=== PATIENT | male | born 1965 | race Caucasian/White ===

== ENCOUNTER 2020-10-21 15:44 | Inpatient (IN) | payer OTHER, SELFPAY ==
--- NOTE | ~2020-10-21 | XR_ITS ---
XR elbow RT min 3V DATE: 10/21/2020 17:55 INDICATION: Right elbow edema, erythema TECHNIQUE: 4 views COMPARISON: None FINDINGS: There is prominent dorsal soft tissue swelling of the elbow. There is a prominent olecranon process spur with a lucency near the base, possibly due to fracture of uncertain age. There is spurring of the coronoid process of the ulna. There is mild radial head spurring. No fracture or dislocation or joint effusion, periosteal reaction or bone destruction. IMPRESSION: Prominent dorsal soft tissue swelling Dorsal olecranon spurring, with possible fracture of undetermined age Osteoarthritis Reviewed, dictated and finalized at location A. [facility]
[2020-10-21 16:08] VITALS: BP 145/100; PULSE 118; RESP 16; TEMP 37.1; O2SAT 96
--- NOTE | 2020-10-21 17:40 | ED.EXTPRO ---
HPI - Extremity Problem General Chief complaint: Extremity Problem,Nontraumatic <Zeenat Thompson PA-C - Last Filed: 10/21/20 20:37> Stated complaint: right forearm <HUMBERTO Gifford Last Filed: 10/21/20 20:37> Time Seen by Provider: 10/21/20 17:30 <HUMBERTO Gifford Last Filed: 10/21/20 20:37> Source: patient <HUMBERTO Gifford Last Filed: 10/21/20 20:37> Mode of arrival: ambulatory <HUMBERTO Gifford Last Filed: 10/21/20 20:37> Limitations: no limitations <HUMBERTO Gifford Last Filed: 10/21/20 20:37> History of Present Illness HPI Narrative: This is a 55 year old male that presents to the ER for right elbow pain and swelling intermittent for the last couple of months. Reports he bumped the elbow and since has intermittently had swelling in the area. Reports over the last couple of days the swelling and redness increased again which prompted him to be seen. Denies fever or decreased ROM. <HUMBERTO Gifford Last Filed: 10/21/20 20:37> Related Data Home medications: Home Medications Medication Instructions Recorded Confirmed No Home Medications 10/21/20 10/21/20 <HUMBERTO Gifford Last Filed: 10/21/20 20:37> Allergies/Adverse reactions: Allergies Allergy/AdvReac Type Severity Reaction Status Date / Time No Known Allergies Allergy Verified 10/21/20 21:39 <HUMBERTO Gifford Last Filed: 10/21/20 20:37> Review of Systems Review of Systems: Narrative: CONSTITUTIONAL: Denies fever SKIN: Reports redness MUSCULOSKELETAL: Reports joint pain, and myalgia. NEUROLOGIC: Denies numbness <HUMBERTO Gifford Last Filed: 10/21/20 20:37> All systems reviewed & are unremarkable except as noted in HPI and below <HUMBERTO Gifford Last Filed: 10/21/20 20:37> [facility] Family History Family History: Family History (Updated 10/21/20 @ 21:44 by Rere Quevedo RN) Father Family history of cardiovascular disease Diabetes mellitus Cerebrovascular accident Mother Diabetes mellitus Sibling Family history of cardiovascular disease Afib <Zeenat Thompson PA-C - Last Filed: 10/21/20 20:37> Social History Social History: Social History Smoking status: Never smoker Second hand tobacco smoke exposure: No Alcohol intake: current Drinks per week: 4 Substance use: never Substance use type: does not use Gender identity (if verbalized by the patient): Male Spiritual care concerns: No <Zeenat Thompson PA-C - Last Filed: 10/21/20 20:37> Exam Narrative: Exam Narrative: GENERAL: Well-appearing, well-nourished, and in no acute distress. HEAD: Normocephalic, atraumatic. EYES: EOMI. CHEST: Clear to auscultation. No respiratory distress. No wheezes rales or rhonchi HEART: Regular rate and rhythm. No murmur heard. Normal peripheral pulses. EXTREMITIES: Normal range of motion. Moderate edema and erythema surrounding the posterior right elbow, olecranon bursa is fluctuant and tender. Erythema extends into the forearm and up into the axilla. Normal radial pulses. Normal sensation SKIN: Warm, dry, no rash. NEURO: No focal deficits. Alert and oriented x3. PSYCH: Normal mood and affect <Zeenat Thompson PA-C - Last Filed: 10/21/20 20:37> Course Consultations Consultation #1: Spoke with Dr. Chung about patient and workup, likely will not treat this as a fracture, patient has no certain injury he can think of. <Zeenat Thompson PA-C - Last Filed: 10/21/20 20:37> Date: 10/21/20 <HUMBERTO Gifford Last Filed: 10/21/20 20:37> Time: 20:35 <HUMBERTO Gifford Last Filed: 10/21/20 20:37> Consultation #2: Spoke with hospitalist about patient and work-up who accepts admission <Zeenat Thompson PA-C - Last Filed: 10/21/20 20:37> Date: 10/21/20 <Zeenat Thompson PA-C - Last Filed: 10/21/20 20:37> Time:
[2020-10-21 18:13] LABS: Basophils Absolute Auto 0.1 K/mm3 (0.0-0.1); Basophils Percent Auto 0.5 % (0.2-1.2); Eosinophils Absolute Auto 0.1 K/mm3 (0-0.3); Eosinophils Percent Auto 1.1 % (0-4.4); Hematocrit 46.2 % (42.0-52.0); Immature Granulocyte Absolute 0.05 K/mm3 (0.00-0.031); Immature Granulocyte Percent A 0.5 % (0-0.5); Lymphocytes Absolute Auto 1.88 K/mm3 (0.9-3.2); Lymphocytes Percent Auto 19.4 % (18.3-44.2); Mean Corpuscular HGB Conc 34.6 g/dl (32-36); Mean Corpuscular Hemoglobin 30.6 pg (26-34); Mean Corpuscular Volume 88.3 fl (80-100); Mean Platelet Volume 10.1 fl (7.4-10.4); Monocytes Absolute Auto 0.9 K/mm3 (0.1-0.6); Monocytes Percent Auto 9.2 % (2.6-8.5); Neutrophils Absolute Auto 6.7 K/mm3 (1.3-6.7); Neutrophils Percent Auto 69.3 % (45.5-73.1); Platelet Count Result 226 k/mm3 (150-375); Red Blood Count 5.23 M/mm3 (4.6-6.20); Red Cell Distribution Width 11.5 % (11.5-14.5); White Blood Count 9.7 K/mm3 (4.5-10.0)
[2020-10-21 18:27] LABS: Anion Gap 5 mmol/L (8-16); Blood Urea Nitrogen 17 mg/dL (9-20); CRP 5.8 mg/dL (<1.0); Calcium 9.7 mg/dL (8.4-10.2); Carbon Dioxide 28 mmol/L (22-30); Chloride 104 mmol/L (98-107); Estimated CRCL calculation 81 ml/min; Estimated Glomerular Filt Rate > 60; Glucose 175 mg/dL (75-110); Potassium 4.3 mmol/L (3.4-5.0); Sodium 137 mmol/L (137-145)
[2020-10-21 18:51] LABS: Erythrocyte Sedimentation Rate 14 mm/hr (0-20)
[2020-10-21 18:53] VITALS: BP 139/81; PULSE 87; RESP 18; O2SAT 97
--- NOTE | 2020-10-21 19:42 | PM.IMHP ---
H&P: HPI History of Present Illness Date/Time: 10/21/20 19:42 Chief Complaint: left elbow swelling and redness++ Narrative: This is a pleasant 55 year old male who is previously known to be healthy who presented to the hospital today with a complaint of right elbow redness, tenderness, and swelling which has just worsened over the past three days. He is known to have had right elbow swelling and discomfort that has been intermittent over the past few months which he initially noticed after raking some leaves several months ago. He denies any trauma of his right elbow. Over the past three days he started to notice that the redness was worsening and spreading down his right forearm to his wrist. He denies any fever, nausea, chills, vomiting, numbness, tingling, or decreased range of motion of his right upper extremity. He has no previous history of serious infections and denies any history of MRSA. In the ER tonight he had his right elbow aspirated by ER provider. The patient has no history of diabetes mellitus. No other complaints. Ortho has been consulted by ER provider. Review of Systems Review of Systems: All systems reviewed & are unremarkable except as noted in HPI and below PMFSH Family History Family History Father Family history of cardiovascular disease Diabetes mellitus Cerebrovascular accident Mother Diabetes mellitus Sibling Family history of cardiovascular disease Afib Social History Social History Smoking status: Never smoker Second hand tobacco smoke exposure: No Alcohol intake: current Drinks per week: 4 Substance use: never Substance use type: does not use Gender identity (if verbalized by the patient): Male Spiritual care concerns: No Comments The patient has no past significant medical or surgical history. Meds Home Medications and Allergies Home Medications Medication Instructions Recorded Confirmed Type No Home Medications 10/21/20 10/21/20 History Allergies Allergy/AdvReac Type Severity Reaction Status Date / Time No Known Allergies Allergy Verified 10/21/20 21:39 Vital Signs Vital Signs - 24 hr 10/21/20 16:08 10/21/20 18:53 Temperature 37.1 C Pulse Rate 118 H 87 Respiratory Rate 16 18 Blood Pressure 145/100 H 139/81 Pulse Oximetry 96 97 Exam Const: General: cooperative, no acute distress, alert and awake Nutritional Appearance: overweight Orientation/consciousness: patient oriented x3 HENMT: Head: normal to inspection General nose exam: Normal external nose present Face and sinus: normal facial exam Mouth: Yes Normal oral and palatal mucosa present and Yes oropharynx normal Eyes: Pupils: Equal, round and reactive pupils present EOM: EOMs intact bilaterally Neck: Neck: supple and no JVD Thyroid: thyroid normal Lymphatic: lymphadenopathy not noted Resp: Effort & Inspection: normal respiratory effort Auscultation: clear to auscultation bilaterally Cardio: Rate: regular rate Rhythm: regular rhythm Heart sounds: no murmurs GI: Inspection: normal to inspection Auscultation: normal bowel sounds Skin: General skin exam: normal color and erythema (right elbow + forearm+ ) Neuro: General: patient oriented x3 Cranial nerves: Yes CN's II-XII intact bilaterally and Yes Equal, round and reactive pupils present Speech: normal speech Motor exam (neuro): 5/5 motor strength present throughout Sensory Exam: normal sensation Extrem: Right upper extremity: elbow/forearm (Edema and Erythema of right elbow extending on vental side to wrist+ ) Psych: Mental Status: mental status grossly normal Affect: normal affect H&P: Results Labs Labs: Short CBC 10/21/20 Range/Units 18:08 WBC 9.7 (4.5-10.0) K/mm3 Hgb 16.0 (14.0-18.0) g/dL Hct 46.2 (42.0-52.0) % Plt Count 226 (150-375) k/mm3 BMP 10/21/20 1
[2020-10-21 20:04] VITALS: BP 129/86; PULSE 79; RESP 20; O2SAT 96
[2020-10-21 21:00] VITALS: BP 124/87; PULSE 89; RESP 20; O2SAT 99
[2020-10-21 21:12] LABS: Color Synovial Fluid Yellow (Colorless); Crystals Synovial Fluid None Seen (None Seen); Source Synovial Fluid Synovial fluid
[2020-10-21 21:13] LABS: Appearance Synovial Fluid Hazy (Clear)
[2020-10-21 21:14] LABS: Lymphocytes Synovial Fluid 1 %; Monocytes Synovial Fluid 8 %; Neutrophils Synovial Fluid 91 % (0-25)
[2020-10-21 21:21] VITALS: BP 117/80; PULSE 96; RESP 18; O2SAT 96
--- NOTE | 2020-10-21 21:30 | ADMGEN ---
This patient, Luther Antunez, was admitted to Medical Room 342-01. Patient/family oriented to hospital policies and general routines including ID bracelet, bed and alarms, visiting hours, pain management, procedures, bathroom and other care routines, personal items, smoking policy, room service/diet, and visiting hours. Information on how to activate the Rapid Response Team has been discussed. Patient/Family are encouraged to report perceived risks to care and to ask questions if they do not understand what they are told or what they should do.
[2020-10-21 21:57] VITALS: BP 144/93; PULSE 93; RESP 18; TEMP 36.9; O2SAT 97
[2020-10-21 22:00] VITALS: BMI 30.1
[2020-10-22 05:19] VITALS: BP 134/75; PULSE 74; RESP 18; TEMP 36.2; O2SAT 98
[2020-10-22 06:05] LABS: Basophils Percent Auto 0.5 % (0.2-1.2); Eosinophils Absolute Auto 0.1 K/mm3 (0-0.3); Eosinophils Percent Auto 1.6 % (0-4.4); Hematocrit 43.8 % (42.0-52.0); Hemoglobin 14.7 g/dL (14.0-18.0); Immature Granulocyte Absolute 0.03 K/mm3 (0.00-0.031); Immature Granulocyte Percent A 0.3 % (0-0.5); Lymphocytes Absolute Auto 2.55 K/mm3 (0.9-3.2); Lymphocytes Percent Auto 28.8 % (18.3-44.2); Mean Corpuscular HGB Conc 33.6 g/dl (32-36); Mean Corpuscular Hemoglobin 29.8 pg (26-34); Mean Corpuscular Volume 88.7 fl (80-100); Mean Platelet Volume 10.9 fl (7.4-10.4); Neutrophils Absolute Auto 5.1 K/mm3 (1.3-6.7); Neutrophils Percent Auto 57.8 % (45.5-73.1); Platelet Count Result 222 k/mm3 (150-375); Red Blood Count 4.94 M/mm3 (4.6-6.20); Red Cell Distribution Width 11.4 % (11.5-14.5); White Blood Count 8.9 K/mm3 (4.5-10.0)
[2020-10-22 06:23] LABS: Anion Gap 2 mmol/L (8-16); Blood Urea Nitrogen 18 mg/dL (9-20); Calcium 8.8 mg/dL (8.4-10.2); Carbon Dioxide 29 mmol/L (22-30); Chloride 103 mmol/L (98-107); Estimated CRCL calculation 83 ml/min; Estimated Glomerular Filt Rate > 60; Glucose 208 mg/dL (75-110); Potassium 3.9 mmol/L (3.4-5.0); Sodium 134 mmol/L (137-145)
[2020-10-22 08:00] VITALS: PULSE 85; RESP 16; O2SAT 94
[2020-10-22 09:45] LABS: Glucose Point of Care 245 (65-105)
--- NOTE | 2020-10-22 10:13 | PM.IMPN ---
Progress Note: A&P Assessment and Plan (1) Right forearm cellulitis: Code(s): L03.113 - Cellulitis of right upper limb Status: Acute Assessment and Plan: This appears to have significantly improved since admission based on area of concern that is outlined with marker. Area over elbow appears warm/erythematous. Aspiration yesterday yielded 20 ccs of yellow/hazy fluid with 91% neutrophils; no crystals seen. No gram stain performed; cultures pending on fluid. BCx also pending. Right elbow xr shows Prominent dorsal soft tissue swelling and dorsal olecranon spurring, with possible fracture of undetermined age . Patient is afebrile with stable VS, no leukocytosis; not septic appearing. A1c 8.0 today suggesting possible DM, or elevated 2/2 infection? Patient has no history of DM. Dr. Chung was consulted from the ED and appreciate input; appears no further intervention at this time. Will continue treatment of possible septic bursitis with cellulitis Will add imipenem in addition to vancomycin per antibiotic stewardship given possible DM diagnosis He does not appear septic and seems as though erythema has significantly improved overnight; will await culture results and pending on these results, will consider discharge on PO antibiotic regimen if continued improvement monitor overnight Glucose control as noted below (2) Olecranon bursitis, right elbow: Code(s): M70.21 - Olecranon bursitis, right elbow Status: Acute Assessment and Plan: Please see above a/p (3) Elevated hemoglobin A1c: Code(s): R73.09 - Other abnormal glucose Status: Acute Assessment and Plan: A1c 8.0 suggesting undiagnosed DM; infection likely adding to elevated sugars Glucose control with accuchecks ACHS, hypoglycemia protocol, correctional insulin, diabetic diet during stay Will have patient follow up with PCP after discharge Will consider discharging on metformin in interim, but he will be encouraged to improve diet/exercise Monitor glucose levels Subjective Date/time seen: 10/22/20 10:13 Interval history: Patient is a 55 yo previously healthy male who is seen in follow up for right olecranon bursitis and associated cellulitis in right upper arm and forearm; he also has elevated A1c. Patient states he thinks the redness/swelling has improved overnight. Still edematous in distal right upper arm, elbow and forearm. He denies any pain over elbow, but notes there was some pain prior to admission. Otherwise no other complaints. Denies f/c/s, headaches, dizziness, lightheadedness, cp/palpitations, sob/cough, n/v/d/c, abd pain, changes in BMs, dysuria, calf pain/swelling. Review of Systems Review of Systems: All systems reviewed & are unremarkable except as noted in HPI and below Exam Narrative: Exam Narrative: General: Patient resting in semi-felder's position in bed in no acute distress. HEENT: Normocephalic, EOMI, oral mucosa moist. Cardiovascular: Rate and rhythm are regular. No notable murmur, rub, or gallop. Respiratory: Lungs clear to auscultation all maya. Non-labored breathing. Abdomen: Soft, non-tender, non-distended, bowel sounds present. Extremities: Peripheral pulses intact. Right elbow shows roughly half dollar-sized erythema and edema with roughly pea-sized healing scab overlying the area; no drainage appreciated; warm to touch. Minimal edema extending to distal right upper arm and significant edema extending to ventral side of forearm. Outside the area of concern on elbow, there does not appear to be much erythema and temp appears to be same as surrounding tissues; no signs of lymphangitis. NVI distal to area of concern. Minimal limited active ROM with flexion at level of elbow; Full extension at level of elbow. NTTP b/l calves Neuro: No focal neurological deficits. Speech is clear. O
[2020-10-22] MEDS: INSULIN ASPART (*BKC) 100 UNITS/ML SUB-Q ×2 (10:27→17:28)
[2020-10-22 11:50] LABS: Glucose Point of Care 188 (65-105)
[2020-10-22 14:00] VITALS: BP 145/86; PULSE 85; RESP 16; TEMP 36.9; O2SAT 94
--- NOTE | 2020-10-22 14:16 | PM.CNOR ---
Assessment and Plan Assessment and plan (1) Olecranon bursitis, right elbow: Code(s): M70.21 - Olecranon bursitis, right elbow Status: Acute (2) Right forearm cellulitis: Code(s): L03.113 - Cellulitis of right upper limb Status: Acute (3) Abnormal glucose: Code(s): R73.09 - Other abnormal glucose Status: Acute Assessment and Plan: Acute olecranon bursitis with cellulitis in the upper extremity. New diagnosis of diabetes mellitus. Some improvement with the IV antibiotics administered yesterday. I suspect he will continue to improve. Cultures are pending. I agree with plan to find an appropriate oral antibiotic and then discharge home. I cautioned the patient about overuse of the elbow which can contribute to swelling and further infection. He understands the risk of progressive swelling and sepsis. He will be following up with his primary care physician for the diabetes and he may follow with me for the elbow as necessary in 2-3 weeks. There are mild degenerative changes at the elbow which may have been asymptomatic previously. Spurring of the triceps insertion on the olecranon appears chronic. No evidence of acute fracture. I discussed the possibility of bursectomy and enthesophyte excision if it remains painful. History of Present Illness HPI Consult date: 10/22/20 Chief complaint: Septic bursitis Narrative: 55-year-old [id number] male complains of acute posterior elbow pain. Prodrome of pain for a few days. No specific trauma. No previous pain with with diabetes. The elbow was aspirated in the emergency room. Yellow synovial fluid 91% neutrophils. Review of Systems Review of Systems: All systems reviewed & are unremarkable except as noted in HPI and below PMFSH Family History Family History Father Family history of cardiovascular disease Diabetes mellitus Cerebrovascular accident Mother Diabetes mellitus Sibling Family history of cardiovascular disease Afib Social History Social History Smoking status: Never smoker Second hand tobacco smoke exposure: No Alcohol intake: current Drinks per week: 4 Substance use: never Substance use type: does not use Gender identity (if verbalized by the patient): Male Spiritual care concerns: No Meds Home Medications and Allergies Home Medications Medication Instructions Recorded Confirmed Type No Home Medications 10/21/20 10/21/20 History Allergies Allergy/AdvReac Type Severity Reaction Status Date / Time No Known Allergies Allergy Verified 10/21/20 21:39 Vital Signs Vital Signs - 24 hr 10/21/20 16:08 10/21/20 18:53 10/21/20 20:04 Temperature 37.1 C Pulse Rate 118 H 87 79 Respiratory Rate 16 18 20 Blood Pressure 145/100 H 139/81 129/86 Pulse Oximetry 96 97 96 10/21/20 21:00 10/21/20 21:21 10/21/20 21:57 Temperature 36.9 C Pulse Rate 89 96 93 Respiratory Rate 20 18 18 Blood Pressure 124/87 117/80 144/93 H Pulse Oximetry 99 96 97 10/22/20 05:19 Temperature 36.2 C L Pulse Rate 74 Respiratory Rate 18 Blood Pressure 134/75 Pulse Oximetry 98 Exam Narrative: Exam Narrative: Healthy-appearing male. Alert oriented x3. No acute distress. Unlabored breathing. Right elbow significant posterior erythema and swelling. Small draining lesion at the center of the elbow. Moderate bulbous swelling and tenderness. No other instability or deformity. Flexion and extension are well tolerated with moderate discomfort. Shoulder wrist and hand benign. Neurologic status intact. Contralateral upper extremity normal. Normal gait and station. Const: General: cooperative and healthy appearing HENMT: Head: normal to inspection Results Labs Result Diagrams: 10/22/20 05:15 10/22/20 05:15 Labs: Abnormal lab results
[2020-10-22 17:20] LABS: Glucose Point of Care 219 (65-105)
[2020-10-22 19:49] VITALS: BP 151/73; PULSE 101; RESP 16; TEMP 37.5; O2SAT 93
[2020-10-22 21:54] LABS: Glucose Point of Care 252 (65-105)
[2020-10-23 05:25] VITALS: BP 121/74; PULSE 70; RESP 14; TEMP 36.6; O2SAT 98
[2020-10-23 07:08] LABS: Basophils Absolute Auto 0.1 K/mm3 (0.0-0.1); Basophils Percent Auto 0.6 % (0.2-1.2); Eosinophils Absolute Auto 0.1 K/mm3 (0-0.3); Eosinophils Percent Auto 1.4 % (0-4.4); Hematocrit 43.5 % (42.0-52.0); Hemoglobin 14.9 g/dL (14.0-18.0); Immature Granulocyte Absolute 0.05 K/mm3 (0.00-0.031); Immature Granulocyte Percent A 0.6 % (0-0.5); Lymphocytes Absolute Auto 1.53 K/mm3 (0.9-3.2); Mean Corpuscular HGB Conc 34.3 g/dl (32-36); Mean Corpuscular Hemoglobin 30.5 pg (26-34); Mean Corpuscular Volume 89.1 fl (80-100); Mean Platelet Volume 10.2 fl (7.4-10.4); Monocytes Absolute Auto 0.8 K/mm3 (0.1-0.6); Monocytes Percent Auto 9.3 % (2.6-8.5); Neutrophils Percent Auto 70.1 % (45.5-73.1); Platelet Count Result 206 k/mm3 (150-375); Red Blood Count 4.88 M/mm3 (4.6-6.20); Red Cell Distribution Width 11.4 % (11.5-14.5); White Blood Count 8.5 K/mm3 (4.5-10.0)
[2020-10-23 07:21] LABS: Anion Gap 1 mmol/L (8-16); Blood Urea Nitrogen 16 mg/dL (9-20); Calcium 8.6 mg/dL (8.4-10.2); Carbon Dioxide 28 mmol/L (22-30); Chloride 103 mmol/L (98-107); Estimated CRCL calculation 83 ml/min; Estimated Glomerular Filt Rate > 60; Glucose 189 mg/dL (75-110); Magnesium 1.9 mg/dL (1.6-2.3); Potassium 3.7 mmol/L (3.4-5.0); Sodium 132 mmol/L (137-145)
[2020-10-23 07:44] LABS: Glucose Point of Care 197 (65-105)
[2020-10-23 08:00] VITALS: PULSE 70; RESP 14; O2SAT 98
[2020-10-23 08:07] LABS: Vancomycin Trough 7.5 ug/mL (10.0-20.0)
--- NOTE | 2020-10-23 09:20 | PM.DS ---
DS: Admitting Diagnosis Admitting Diagnosis Admitting Diagnosis: Right olecranon bursitis with associated right arm cellulitis DS: Discharge Diagnosis Discharge Diagnosis (1) Right forearm cellulitis: Code(s): L03.113 - Cellulitis of right upper limb Status: Acute Assessment and Plan: Again today, this appears to have significantly improved since admission based on area of concern that is outlined with marker. Area over elbow still appears erythematous. Aspiration 10/21 yielded 20 ccs of yellow/hazy fluid with 91% neutrophils; no crystals seen. Gram stain shows few WBC, no organisms; fluid cultures show no growth in aerobic culture with anaerobic pending. BCx NGTD x 2 after 2 days. Right elbow xr shows Prominent dorsal soft tissue swelling and dorsal olecranon spurring, with possible fracture of undetermined age . Patient is afebrile with stable VS, no leukocytosis; not septic appearing. A1c 8.0 this hospital stay suggesting possible DM, or elevated 2/2 infection? Patient has no history of DM. Dr. Chung was consulted from the ED and appreciate input; appears no further intervention at this time. Will continue with oral antibiotics. Keflex 500 mg PO Q6hr and Doxycycline 100 mg Q12 hr, both through 10/28 to complete 7 total days of antibioics. Stop IV imipenem and IV vanc. Received one full day of both. F/u with PCP Elevate arm and limit activity. Ice prn (2) Olecranon bursitis, right elbow: Code(s): M70.21 - Olecranon bursitis, right elbow Status: Acute Assessment and Plan: Please see above a/p (3) Elevated hemoglobin A1c: Code(s): R73.09 - Other abnormal glucose Status: Acute Assessment and Plan: A1c 8.0 suggesting undiagnosed DM; infection likely adding to elevated sugars Glucose control with accuchecks ACHS, hypoglycemia protocol, correctional insulin, diabetic diet during stay Will have patient follow up with PCP after discharge Diet modification and exercise encouraged, but will send with script for Metformin 500 mg BIDWM with instructions to call his PCP early next week to see if they would like him to initiate this medication DS: Summary Hospital Course Reason for hospitalization: right olecranon bursitis and associated right arm cellulitis Hospital Course: Date of arrival: 10/21/20 Date of discharge: 10/23/20 Patient is a 55 yo previous heathy male who presented to the ED on 10/21 after being sent from his PCP's office with complaints of right elbow redness, tenderness, and swelling which had worsened over the previous three days. While in the ED, xray of the elbow showed prominent dorsal soft tissue swelling and dorsal olecranon spurring with a possible fracture of undetermined age. Dr. Chung ([facility]) was consulted from the ED for suspected septic bursitis and elbow was aspirated which yielded 20 ccs yellow/hazy fluid with 91% neutrophils. He was started on IV vanc for treatment of possible septic bursitis and associated right arm cellulitis. Patient admitted under this setting. Please see H&P for further details. Patient was admitted to the hospitalist service for further management/treatment. Patient was continued on IV vancomycin and IV imipenem was added to regimen per antibiotic stewardship as patient's A1c was found to be 8.0 after admission. He has not had diagnosis of diabetes in the past. He was placed on diabetic diet and started on correctional insulin regimen. Blood cultures and aspiration fluid cultures were drawn in the ED; BCx showed no growth preliminary and aerobic culture was no growth preliminary - anaerobic culture pending at time of dictation and will be followed. Patient's swelling and redness significantly improved since admission and plan was to transition to PO Keflex and Doxycycline to complete a total of 7 days course of antib
[2020-10-23] MEDS: DOXYCYCLINE HYCLATE 100 MG TABLET PO (09:34)
[2020-10-23] MEDS: CEPHALEXIN 500 MG CAPSULE PO (09:34)
== END 2020-10-23 12:00 | disposition home or self-care (01) | DRG 558 ==
LOC: ANHED 20:37 → ANH3MED 22:23
PROVIDERS: Physician Assistant; Admitting Provider Family Medicine; Emergency Provider Emergency Medicine; PCP Family Medicine; Visit Provider Physician Assistant
DX: M71.521 Other bursitis, not elsewhere classified, right elbow (principal); L03.113 Cellulitis of right upper limb; E11.9 Type 2 diabetes mellitus without complications
CPT/HCPCS: 20605; 36415; 73080; 80048; 80202; 82948; 83036; 83735; 84550; 85025; 85652; 86140; 87040; 87070; 87075; 87205; 89051; 89060; 96374; 99285; A9270; J0743; J1815; J3370

== ENCOUNTER 2022-11-08 10:49 | Emergency (ER) | payer SELFPAY ==
[2022-11-08 11:22] VITALS: BP 152/86; PULSE 86; RESP 14; TEMP 37.1; O2SAT 98
[2022-11-08 12:47] LABS: Appearance Urine Clear (Clear); Basophils Percent Auto 0.4 % (0.2-1.2); Bilirubin Urine 1+ (Negative); Blood Urine Negative (Negative); Color Urine Yellow (Yellow); Eosinophils Percent Auto 0.2 % (0-4.4); Glucose Urine UA Negative (Negative); Hematocrit 47.9 % (42.0-52.0); Hemoglobin 16.1 g/dL (14.0-18.0); Immature Granulocyte Absolute 0.03 K/mm3 (0.00-0.031); Immature Granulocyte Percent A 0.5 % (0-0.5); Ketones Urine 2+ mg/dL (Negative); Leukocyte Esterase Ur Negative LEU/UL (Negative); Lymphocytes Absolute Auto 1.19 K/mm3 (0.9-3.2); Lymphocytes Percent Auto 21.4 % (18.3-44.2); Mean Corpuscular HGB Conc 33.6 g/dl (32-36); Mean Corpuscular Hemoglobin 31.2 pg (26-34); Mean Corpuscular Volume 92.8 fl (80-100); Mean Platelet Volume 10.1 fl (7.4-10.4); Monocytes Absolute Auto 0.5 K/mm3 (0.1-0.6); Monocytes Percent Auto 9.2 % (2.6-8.5); Neutrophils Absolute Auto 3.8 K/mm3 (1.3-6.7); Neutrophils Percent Auto 68.3 % (45.5-73.1); Nitrate Urine Negative (Negative); Platelet Count Result 254 k/mm3 (150-375); Protein Urine Trace mg/dL (Negative); Red Blood Count 5.16 M/mm3 (4.6-6.20); Specific Grav Ur >= 1.030 (1.001-1.035); Urobilinogen Urine 0.2 mg/dL (<2.0); White Blood Count 5.6 K/mm3 (4.5-10.0); pH Urine 5.5 (5.0-9.0)
[2022-11-08 12:49] LABS: Mucus Urine Few /lpf; RBC Urine 0-2 /hpf (0-2); Squamous Epithelial Cell Urine Rare /hpf (Few); WBC Urine 0-3 /hpf
[2022-11-08 12:57] LABS: Alanine Aminotransferase 45 U/L (6-50); Albumin Level 5.2 g/dL (3.5-5.1); Alkaline Phosphatase 50 U/L (38-126); Anion Gap 7 mmol/L (8-16); Aspartate Amino Transferase 30 U/L (17-59); Blood Urea Nitrogen 29 mg/dL (9-20); Calcium 9.2 mg/dL (8.4-10.2); Carbon Dioxide 29 mmol/L (22-30); Chloride 101 mmol/L (98-107); Estimated CRCL calculation 89 ml/min; Estimated Glomerular Filt Rate > 60; Ethanol < 10 mg/dL (<10); Glucose 144 mg/dL (65-110); Sodium 137 mmol/L (137-145)
[2022-11-08 12:58] LABS: Add Urine Microscopic? YES
--- NOTE | 2022-11-08 12:59 | ED.PSYCH ---
HPI - Psych General Chief Complaint: Psychiatric Symptoms Stated Complaint: suicidal ideation Time Seen by Provider: 11/08/22 12:04 History of Present Illness HPI Narrative: Patient is a 57-year-old male presenting with suicidal ideation. Patient reports undergoing a lot of work stress recently. States that he was recently fired from his job and has been experiencing some financial hardships. He called a suicidal hotline this morning and they became concerned that he was a threat to himself so police were called. Patient brought to the ER for psych evaluation by PD. Patient states that he was having thoughts of hurting himself but he did not have a plan. He states that he was never a danger to himself. Denies homicidal ideation. Denies prior psychiatric hospitalizations or suicide attempts. Denies access to firearms. Related Data Allergies Allergy/AdvReac Type Severity Reaction Status Date / Time No Known Allergies Allergy Verified 11/08/22 10:50 Review of Systems Review of Systems: All systems reviewed & are unremarkable except as noted in HPI and below PMFSH Past Medical History Medical History Mixed hyperlipidemia Obesity (BMI 30.0-34.9) Family History Family History Father Family history of cardiovascular disease Diabetes mellitus Cerebrovascular accident Mother Diabetes mellitus Sibling Family history of cardiovascular disease Afib Social History Social History Smoking status: Never smoker Second hand tobacco smoke exposure: No Alcohol intake: current Drinks per week: 4 Substance use: never Substance use type: does not use Gender identity (if verbalized by the patient): Male Spiritual care concerns: No Exam Narrative: GENERAL: Well-appearing, well-nourished, and in no acute distress. HEAD: Normocephalic, atraumatic. EYES: PERRLA and EOMI. ENT: Nares clear, no rhinorrhea or epistaxis. Mucous membranes moist. NECK: Supple. CHEST: No respiratory distress. HEART: Regular rate and rhythm ABDOMEN: Soft, nontender, nondistended EXTREMITIES: Normal range of motion. No edema. SKIN: Warm, dry, no rash. NEURO: No focal deficits. Alert and oriented x3. PSYCH: Normal affect. Denies current SI or HI Course Vital Signs Vital signs: Vital Signs Temperature 98.7 F 11/08/22 11:22 Pulse Rate 86 11/08/22 11:22 Respiratory Rate 14 11/08/22 11:22 Blood Pressure 152/86 H 11/08/22 11:22 Pulse Oximetry 98 11/08/22 11:22 Oxygen Delivery Room Air 11/08/22 11:22 Temperature 98.7 F 11/08/22 11:22 Pulse Rate 72 11/08/22 20:34 Respiratory Rate 14 11/08/22 20:34 Blood Pressure 132/85 11/08/22 20:34 Pulse Oximetry 100 11/08/22 20:34 Oxygen Delivery Room Air 11/08/22 11:22 MDM - Psych MDM Narrative Medical decision making narrative: Patient is a 57-year-old male presenting for psychiatric evaluation. Vitals within normal limits. Blood work is noncontributory. Exam remarkable for the above. Patient has been medically cleared. Patient has been evaluated by the crisis team. They feel he is safe for discharge with a safety contract. Patient has had increasing work-related and family related stressors. His is at bedside and states that she feels safe taking him home. He denies SI or HI currently. States that he feels better now that he has a plan in place with outpatient resources. Advised that he follow-up closely with the resources provided as well as his PCP. Appropriate return precautions were given. Patient and his voiced understanding and are agreeable with plan. Discharged in stable condition. Differential Diagnosis Differential diagnosis: Likely suicidal ideation, depression and acute anxiety Lab Data 11/08/22 12:39 11/08/22 12:39 Lab
[2022-11-08 13:02] LABS: Amphetamine Screen Urine Negative (Negative); Barbiturate Screen Urine Negative (Negative); Benzodiazepines Screen Urine Negative (Negative); Cannabinoid Screen Urine Negative (Negative); Cocaine Screen Urine Negative (Negative); Methadone Screen Urine Negative (Negative); Opiate Screen Urine Negative (Negative); Phencyclidine Screen Urine Negative (Negative)
[2022-11-08 13:23] LABS: Influenza A QL RT-PCR Negative (Negative); Influenza B QL RT-PCR Negative (Negative); SARS-CoV-2 RNA PCR Negative
[2022-11-08 20:34] VITALS: BP 132/85; PULSE 72; RESP 14; O2SAT 100
== END 2022-11-08 20:35 | disposition home or self-care (01) ==
PROVIDERS: Emergency Provider Emergency Medicine; PCP Family Medicine
DX: R45.851 Suicidal ideations (principal); Z56.89 Other problems related to employment; Z20.822 Contact with and (suspected) exposure to COVID-19; E78.2 Mixed hyperlipidemia; E66.01 Morbid (severe) obesity due to excess calories; Z68.27 Body mass index [BMI] 27.0-27.9, adult
CPT/HCPCS: 36415; 80053; 80307; 81001; 84443; 85025; 87636; 99283